=== PATIENT | female | born 1980 | race Caucasian/White ===

== ENCOUNTER 2019-08-24 10:14 | Emergency (ER) | payer SELFPAY ==
[~2019-08-24] VITALS: Ht 160 cm; Wt 48.0 kg
[2019-08-24 11:23] VITALS: BP 130/69
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
[2019-08-24] MEDS ORDERED: LORazepam 0.5 MG TABLET PO ONE (11:45)
[2019-08-24] MEDS ORDERED: LORA0.5T96 PO (11:46)
== END 2019-08-24 11:48 | disposition home or self-care (01) ==
LOC: ER 10:14
DX: F41.9 Anxiety disorder, unspecified (principal); R42 Dizziness and giddiness; J39.2 Other diseases of pharynx; Z98.890 Other specified postprocedural states
CPT/HCPCS: 81025; 99283